=== PATIENT | male | born 1980 | race Caucasian/White ===

== ENCOUNTER → 2019-08-04 12:25 | Outpatient (CLI) | payer OTHER, MEDICAID, SELFPAY ==
--- NOTE | 2019-08-04 12:26 | DI.US.S_ITS ---
PROCEDURE: US RENAL COMPLETE INDICATIONS: TESTICULAR PAIN, HEMATURIA, KIDNEY STONES TECHNIQUE: Real-time scanning was performed of the kidneys and bladder, with image documentation. COMPARISON: None. FINDINGS: Kidneys: Kidneys are normal in size. Right kidney measures 10.2 cm long; left kidney measures 11.2 cm long. Right renal cortical thickness is 2.0 cm; left renal cortical thickness is 2.4 cm. Renal cortical echotexture is normal. No hydronephrosis or nephrolithiasis. No suspicious solid mass lesions. Bladder: Pre-void bladder volume is 40 mL. Post-void residual is 0 mL. Pre-void images demonstrate no intraluminal masses or stones. On pre-void images, bilateral ureteral jets are noted with color Doppler interrogation. (Of note, ureteral jets may not be detectable in up to 25% of cases due to insufficient differences in specific gravity between ureteral and bladder urine). Miscellaneous: No free pelvic fluid. IMPRESSION: Normal sonographic appearance of the kidneys bilaterally. Dictated by: Parminder Campoverde [facility] Interpreted: Arianne Phillips MD on 08/04/2019 at 13:34 Approved by: Arianne Phillips MD, PhD on 08/04/2019 at 13:40
--- NOTE | 2019-08-04 12:26 | DI.US.S_ITS ---
PROCEDURE: US SCROTUM INDICATIONS: RT TESTICULAR PAIN, ONE EPISODE OF HEMATURIA, KIDNEY STONES TECHNIQUE: Real-time scanning was performed of the scrotum and testicles, with image documentation. Color and pulse Doppler interrogation was performed of both testicles. COMPARISON: [facility], US, US RENAL COMPLETE, 08/04/2019, 12:35. FINDINGS: Right: Testicle is normal in size at 4.7 x 2.5 x 3.2 cm, and homogenous in echotexture. Epididymis is normal in overall size and morphology. No hydrocele or varicoceles. Overlying scrotal skin is normal in thickness. Left: Testicle is normal in size at 4.5 x 2.4 x 3.9 cm, and homogeneous in echotexture. Epididymis is normal in overall size and morphology. No hydrocele. Mild varicocele. Overlying scrotal skin is normal in thickness. Doppler: Color and pulse Doppler demonstrate normal and symmetric arterial flow in both testicles. IMPRESSION: 1. Mild left varicocele; otherwise normal appearance of the testicles. Dictated by: Parminder Campoverde [facility] Interpreted: Arianne Phillips MD on 08/04/2019 at 13:35 Approved by: Arianne Phillips MD, PhD on 08/04/2019 at 13:40
== END ==
PROVIDERS: PCP Nurse Practitioner Family; Referring Provider Nurse Practitioner Family; Visit Provider Nurse Practitioner Family
DX: R31.9 Hematuria, unspecified (principal); N50.89 Other specified disorders of the male genital organs; I86.1 Scrotal varices; R30.0 Dysuria; Z87.442 Personal history of urinary calculi
CPT/HCPCS: 76770; 76870

== ENCOUNTER → 2021-10-08 17:31 | Outpatient (CLI) | payer OTHER, MEDICAID, SELFPAY ==
--- NOTE | 2021-10-08 17:38 | DI.RAD.S_ITS ---
PROCEDURE: XR CERVICAL SPINE 2V OR 3V INDICATIONS: spurs? disc dz? TECHNIQUE: 3 view(s) of the cervical spine were acquired. COMPARISON: None. FINDINGS: Normal cervical spine vertebral body height and alignment. At C5-C6 there is mild disc height loss and posterior osteophytic ridging of the endplates. Remaining disc spaces maintained. There is no significant facet or uncovertebral hypertrophy at any level. No suspicious lytic or blastic osseous lesion. IMPRESSION: Mild spondylosis at C5-C6. Dictated by: Leoncio Jeong M.D. on 10/09/2021 at 13:33 Approved by: Leoncio Jeong M.D. on 10/09/2021 at 13:35
== END ==
PROVIDERS: PCP Pediatrics; Referring Provider Pediatrics; Visit Provider Pediatrics
DX: M47.812 Spondylosis without myelopathy or radiculopathy, cervical region (principal); G56.01 Carpal tunnel syndrome, right upper limb; M54.50 Low back pain, unspecified; G89.29 Other chronic pain
CPT/HCPCS: 72040

== ENCOUNTER → 2021-12-26 11:11 | Outpatient (CLI) | payer OTHER, MEDICAID, SELFPAY | PROVIDERS: Family Provider Family Medicine; PCP Family Medicine; Referring Provider Family Medicine; Visit Provider Family Medicine | DX: R20.0 Anesthesia of skin (principal) | CPT/HCPCS: 95885; 95886; 95911 ==